=== PATIENT | female | born 1980 | race American Indian/Alaskan Native ===

== ENCOUNTER 2017-08-20 13:07 | Emergency (ER) | payer MEDICAID ==
[2017-08-20 15:46] VITALS: BP 119/77
== END 2017-08-20 21:35 | disposition left against medical advice (07) ==
LOC: ED 13:07
DX: R50.9 Fever, unspecified (principal); R53.83 Other fatigue; R51 Headache; Z53.21 Procedure and treatment not carried out due to patient leaving prior to being seen by health care provider